=== PATIENT | male | born 1990 | race Caucasian/White ===

== ENCOUNTER 2018-09-20 10:54 | Inpatient (IN) | payer BC ==
[~2018-09-20] VITALS: Ht 170.2 cm; Wt 90.0 kg
[2018-09-20 17:33] VITALS: PULSE 89
[2018-09-20 17:52] VITALS: BP 162/108; PULSE 92; RESP 18
[2018-09-20 18:29] VITALS: Ht 170.2 cm; Wt 90.0 kg
[2018-09-20] MEDS ORDERED: LORAZEPAM 2 MG INJ IV PRN (19:00)
[2018-09-20] MEDS ORDERED: morphine 2 MG INJ IV PRN (19:00)
[2018-09-20] MEDS ORDERED: ACETAMINOPHEN 325 MG TAB PO PRN (19:00)
[2018-09-20] MEDS ORDERED: NACL 0.9% 3 ML SYG IV SCH (19:00)
[2018-09-20] MEDS ORDERED: ZOLPIDEM 5 MG TAB PO PRN (19:00)
[2018-09-20] MEDS ORDERED: ONDANSETRON 4 MG INJ IV PRN (19:00)
[2018-09-20] MEDS ORDERED: DOCUSATE SODIUM 100 MG CAP PO PRN (19:00)
--- NOTE | 2018-09-20 19:28 | HP ---
Date/Time of Note Date/Time of Note DATE: 09/20/18 TIME: 19:23 Assessment/Plan VTE Prophylaxis SCD applied (from Ns): Yes Pharmacological prophylaxis: NA/contraindicated Pharm contraindication: low risk/ambulating Assessment/Plan Hospital Course 1. Seizure Patient had a seizure last night, patient has no prior history of seizures Labs, U tox and CT head at outside hospital were normal Neurology consultation obtained Etiology may be related to a viral syndrome and/or lack of sleep 2. Decreased p.o. intake with nausea vomiting likely secondary to viral syndrome Monitor IV fluids Prophylaxis: SCDs HPI/ROS Admit Date/Time Admit Date/Time Sep 20, 2018 at 17:07 Hx of Present Illness Patient is a 28-year-old male with no significant medical history, patient works night shifts at [email or web address] and was on his way to work when he suffered a witnessed seizure at 3 AM. Patient has no prior history of seizures, patient denies any substance abuse or alcohol abuse. Patient was sent to [facility] where labs, U tox and CT head were within normal limits. Patient is currently alert and oriented, patient does report decreased p.o. intake and nausea vomiting for the past 2 days. Patient also reports not sleeping as well recently as he typically does. Patient denies any cough, fevers, chills or sick contacts. ROS Constitutional: no complaints, improved Eyes: no complaints ENT: no complaints Respiratory: no complaints Cardiovascular: no complaints Gastrointestinal: decreased appetite, nausea Genitourinary: no complaints Musculoskeletal: no complaints Skin: no complaints Neurologic: seizure Endocrine: no complaints Lymphatic: no complaints Psychological: no complaints, nl mood/affect Immunologic: no complaints PMH/Family/Social Past Medical History Medical History: no pertinent history Medications Current Medications IV Flush (NS 3 ml) 3 ml PER PROTOCOL IV ; Start 09/20/18 at 19:00 Ondansetron HCl (Zofran Inj) 4 mg Q6H PRN IV NAUSEA/VOMITING; Start 09/20/18 at 19:00 Acetaminophen (Tylenol Tab) 650 mg Q6H PRN PO .PAIN 1-3 OR TEMP; Start 09/20/18 at 19:00 Acetaminophen/ Hydrocodone Bitart ([place] (5/325)) 1 tab Q6H PRN PO .MOD PAIN 4- 6; Start 09/20/18 at 19:00 Morphine Sulfate (morphine) 2 mg Q4H PRN IV .SEVERE PAIN 7-10; Start 09/20/18 at 19:00 Docusate Sodium (Colace) 100 mg Q12H PRN PO .CONSTIPATION; Start 09/20/18 at 19:00 Zolpidem Tartrate (Ambien) 5 mg QHS PRN PO .INSOMNIA; Start 09/20/18 at 19:00 Levetiracetam 100 ml @ 400 mls/hr Q12 IVPB ; Start 09/20/18 at 21:00 Lorazepam (Ativan) 1 mg Q2H PRN IV SEIZURES; Start 09/20/18 at 19:00 Coded Allergies: Penicillins (Verified Allergy, Unknown, 09/20/18) Past Surgical History Hernia surgery Family History Significant Family History: other (Seizures and lupus in the mother) Social History Alcohol Use: rarely Smoking Status: Never smoker Drug Use: none Exam/Review of Systems Vital Signs Vitals Vital Signs Date Temp Pulse Resp B/P (MAP) Pulse Ox O2 O2 Flow FiO2 Time Delivery Rate 09/20/18 98.0 92 18 162/108 96 17:52 (126) Exam Constitutional: alert, oriented Respiratory: clear to auscultation Cardiovascular: regular rate and rhythm Gastrointestinal: soft; No distended Musculoskeletal: nl extremities to inspection SELENA CAREY Sep 20, 2018 19:28
[2018-09-20 19:55] VITALS: BP 165/112; PULSE 87; RESP 18
--- NOTE | 2018-09-20 19:55 | NUR ---
Pt refusing bed alarm during bedside shift report with ROBBIN Felix.
[2018-09-20 20:00] VITALS: PULSE 74
[2018-09-20] MEDS: LEVETIRACETAM 1000 MG (PMX) 100 ML IVPB SCH (21:01)
[2018-09-20] MEDS: SOD CHLORIDE 0.9% 1,000 ML IV SCH (21:01)
[2018-09-20] MEDS: HYDROCODONE/APAP (5/325) TAB PO PRN (21:02)
[2018-09-21] VITALS (14 sets, daily range): BP systolic 158–176; BP diastolic 92–106; PULSE 78–100; RESP 18–20
[2018-09-21] MEDS: SOD CHLORIDE 0.9% 1,000 ML IV SCH (05:48)
--- NOTE | 2018-09-21 07:34 | NUR ---
EOSS: Pt in room resting comfortably. Pt has no complaints at this time. Pt has no s/s of distress. Bedside shift report given to ROBBIN Rios.
[2018-09-21] MEDS: LEVETIRACETAM 1000 MG (PMX) 100 ML IVPB SCH (08:37)
--- NOTE | 2018-09-21 15:00 | CONS ---
Assessment/Plan Assessment/Plan Hospital Course A: 28 yo M with no significant PMH who presents following his first reported seizure of life. There are no clear provoking factors. CTH from [place] is reportedly unremarkable. P: MRI c/ c/o contrast for further characterization EEG to evaluate for epileptiform activity Load with Keppra 1g now and start maintenance 500 BID Ativan IV PRN seizure > 5 min or for cluster Cont medical management per primary Will follow clinically Consultation Date/Type/Reason Admit Date/Time Sep 20, 2018 at 17:07 Type of Consult Neurology Reason for Consultation seizures Requesting Provider: SELENA CAREY Date/Time of Note DATE: 09/21/18 TIME: 15:00 Hx of Present Illness 28 yo M with no reported PMH who presents for evaluation of 2 witnessed seizures. History was obtained from pt and chart review. The pt endorses BLE soreness/weakness but denies lethargy, confusion, recent illness, previous seizure episodes. It is elsewhere noted: Hx of Present Illness Patient is a 28-year-old male with no significant medical history, patient works night shifts at [employer] and was on his way to work when he suffered a witnessed seizure at 3 AM. Patient has no prior history of seizures, patient denies any substance abuse or alcohol abuse. Patient was sent to [facility] where labs, U tox and CT head were within normal limits. Patient is currently alert and oriented, patient does report decreased p.o. intake and nausea vomiting for the past 2 days. Patient also reports not sleeping as well recently as he typically does. Patient denies any cough, fevers, chills or sick contacts. negative unless noted otherwise in HPI Exam/Review of Systems Exam Vitals Vital Signs Date Temp Pulse Resp B/P (MAP) Pulse Ox O2 O2 Flow FiO2 Time Delivery Rate 09/21/18 87 12:01 09/21/18 98.4 19 176/106 97 11:50 (129) Intake and Output 09/20/18 09/20/18 09/21/18 1515:00 23:00 07:00 IntakeIntake Total 300 ml BalanceBalance 300 ml Exam PE: Gen Appearance: No Apparent Distress HEENT: Normocephalic Cardiovascular: Regular rate Lungs: Clear bilaterally Abdomen: Soft Extremities: Dry NE: The patient was alert and oriented. Language was normal. Fund of knowledge was normal. Pupils were equal and reactive to light. There was no afferent pupillary defect. Visual russ were normal. Funduscopic examination was limited. Extra-ocular movements were full. Ptosis was absent. There was no nystagmus. Facial sensation was normal. Face was symmetric with normal strength. Hearing was intact. Palate movements were normal. Neck strength was normal. There was normal tongue bulk and speed of movement. Tone was normal. Muscle bulk was normal. I did not see fasciculations. Arms were strong; legs were were mildly weak. Vibration sensation was normal. Temperature and pinprick sensation was normal. Rapid alternating movements were normal. There was no dysmetria. There was no intention tremor. Gait was deferred due to bedrest. Arm and leg reflexes were 2+ and symmetric. Ghotra's sign was absent. Plantar responses were flexor. Results Result Diagram: 09/21/18 0456 09/21/18 0456 Results 24hrs Laboratory Tests Test 09/21/18 04:56 White Blood Count 8.5 Red Blood Count 4.65 L Hemoglobin 15.5 Hematocrit 43.2 Mean Corpuscular Volume 92.9 Mean Corpuscular Hemoglobin 33.3 H Mean Corpuscular Hemoglobin Concent 35.9 Red Cell Distribution Width 11.7 Platelet Count 226 Mean Platelet Volume 9.5 Immature Granulocytes % 0.200 Neutrophils % 58.8 Lymphocytes % 27.2 Monocytes % 9.7 Eosinophils % 3.7 Basophils % 0.4 Nucleated Red Blood Cells % 0.0 Immature Granulocytes # 0.020 Neutrophils # 5.0 Lymphocytes # 2.3 Monocytes # 0.8 Eosinophils # 0.3 Basophils # 0.0 Nucleated Red Blood Cells # 0.0 Sodium Level 142 Potassium Level 3.7 Chloride Level 110 Carbon Dioxide Level 28 Anion Gap 4 L Blood Urea Nitrogen 10 Creatinine 1.07 Est Glomerular Filtrat Rate mL/min > 60 Glucose Level 88 Hemoglobin A1c 5.0 Calcium Level 9.5 Phosphorus Level 3.2 Magnesium Level 2.1 Total Bilirubin 1.0 Direct Bilirubin 0.00 Indirect Bilirubin 1.0 Aspartate Amino Transf (AST/SGOT) 27 Alanine Aminotransferase (ALT/SGPT) 24 Alkaline Phosphatase 60 Total Protein 7.4 Albumin 4.2 Globulin 3.20 Albumin/Globulin Ratio 1.31 Free Thyroxine Index 3.02 Thyroxine (T4) 8.8 Triiodothyronine (T3) Uptake 34.3 Medications Medication Current Medications IV Flush (NS 3 ml) 3 ml PER PROTOCOL IV ; Start 09/20/18 at 19:00 Ondansetron HCl (Zofran Inj) 4 mg Q6H PRN IV NAUSEA/VOMITING; Start 09/20/18 at 19:00 Acetaminophen (Tylenol Tab) 650 mg Q6H PRN PO .PAIN 1-3 OR TEMP; Start 09/20/18 at 19:00 Acetaminophen/ Hydrocodone Bitart ([place] (5/325)) 1 tab Q6H PRN PO .MOD PAIN 4- 6 Last administered on 09/20/18at 21:02; Admin Dose 1 TAB; Start 09/20/18 at 19:00 Morphine Sulfate (morphine) 2 mg Q4H PRN IV .SEVERE PAIN 7-10; Start 09/20/18 at 19:00 Docusate Sodium (Colace) 100 mg Q12H PRN PO .CONSTIPATION; Start 09/20/18 at 19:00 Zolpidem Tartrate (Ambien) 5 mg QHS PRN PO .INSOMNIA; Start 09/20/18 at 19:00 Levetiracetam 100 ml @ 400 mls/hr Q12 IVPB Last administered on 09/21/18at 08:37; Admin Dose 400 MLS/HR; Start 09/20/18 at 21:00 Lorazepam (Ativan) 1 mg Q2H PRN IV SEIZURES; Start 09/20/18 at 19:00 Amlodipine Besylate (Norvasc) 5 mg DAILY PO ; Start 09/21/18 at 14:00 Past Medical History reviewed Medical History: no pertinent history Medications Current Medications IV Flush (NS 3 ml) 3 ml PER PROTOCOL IV ; Start 09/20/18 at 19:00 Ondansetron HCl (Zofran Inj) 4 mg Q6H PRN IV NAUSEA/VOMITING; Start 09/20/18 at 19:00 Acetaminophen (Tylenol Tab) 650 mg Q6H PRN PO .PAIN 1-3 OR TEMP; Start 09/20/18 at 19:00 Acetaminophen/ Hydrocodone Bitart ([place] (5/325)) 1 tab Q6H PRN PO .MOD PAIN 4- 6 Last administered on 09/20/18at 21:02; Admin Dose 1 TAB; Start 09/20/18 at 19:00 Morphine Sulfate (morphine) 2 mg Q4H PRN IV .SEVERE PAIN 7-10; Start 09/20/18 at 19:00 Docusate Sodium (Colace) 100 mg Q12H PRN PO .CONSTIPATION; Start 09/20/18 at 19:00 Zolpidem Tartrate (Ambien) 5 mg QHS PRN PO .INSOMNIA; Start 09/20/18 at 19:00 Levetiracetam 100 ml @ 400 mls/hr Q12 IVPB Last administered on 09/21/18at 08:37; Admin Dose 400 MLS/HR; Start 09/20/18 at 21:00 Lorazepam (Ativan) 1 mg Q2H PRN IV SEIZURES; Start 09/20/18 at 19:00 Amlodipine Besylate (Norvasc) 5 mg DAILY PO ; Start 09/21/18 at 14:00 Allergies: Coded Allergies: Penicillins (Verified Allergy, Unknown, 09/20/18) Past Surgical History reviewed Family History Significant Family History: seizures (mother) Social History reviewed Alcohol Use: rarely Smoking Status: Never smoker Drug Use: none IGNNA PALAFOX NP Sep 21, 2018 15:00
[2018-09-21] MEDS: AMLODIPINE 5 MG TAB PO SCH (15:24)
--- NOTE | 2018-09-21 16:10 | PN ---
Date/Time of Note Date/Time of Note DATE: 09/21/18 TIME: 16:08 Assessment/Plan VTE Prophylaxis Risk score (from Nsg)>0 risk: 1 SCD applied (from Nsg): Yes Pharmacological prophylaxis: NA/contraindicated Pharm contraindication: low risk/ambulating Lines/Catheters IV Catheter Type (from Nrsg): Peripheral IV Urinary Cath still in place: No Assessment/Plan Hospital Course 1. Seizure Patient had a one-time seizure, patient has no prior history of seizures Continue Keppra, Ativan as needed Labs, U tox and CT head at outside hospital were normal Neurology consultation appreciated, follow-up on MRI and EEG Etiology may be related to a viral syndrome and/or lack of sleep 2. Decreased p.o. intake with nausea vomiting likely secondary to viral syndrome Monitor Status post IV fluids 3. Hypertension Start Norvasc Labetalol as needed 4. Likely LEONA Weight loss advised Outpatient sleep study Prophylaxis: SCDs Result Diagram: 09/21/18 0456 09/21/18 0456 Results 24hrs Laboratory Tests Test 09/21/18 04:56 White Blood Count 8.5 Red Blood Count 4.65 L Hemoglobin 15.5 Hematocrit 43.2 Mean Corpuscular Volume 92.9 Mean Corpuscular Hemoglobin 33.3 H Mean Corpuscular Hemoglobin Concent 35.9 Red Cell Distribution Width 11.7 Platelet Count 226 Mean Platelet Volume 9.5 Immature Granulocytes % 0.200 Neutrophils % 58.8 Lymphocytes % 27.2 Monocytes % 9.7 Eosinophils % 3.7 Basophils % 0.4 Nucleated Red Blood Cells % 0.0 Immature Granulocytes # 0.020 Neutrophils # 5.0 Lymphocytes # 2.3 Monocytes # 0.8 Eosinophils # 0.3 Basophils # 0.0 Nucleated Red Blood Cells # 0.0 Sodium Level 142 Potassium Level 3.7 Chloride Level 110 Carbon Dioxide Level 28 Anion Gap 4 L Blood Urea Nitrogen 10 Creatinine 1.07 Est Glomerular Filtrat Rate mL/min > 60 Glucose Level 88 Hemoglobin A1c 5.0 Calcium Level 9.5 Phosphorus Level 3.2 Magnesium Level 2.1 Total Bilirubin 1.0 Direct Bilirubin 0.00 Indirect Bilirubin 1.0 Aspartate Amino Transf (AST/SGOT) 27 Alanine Aminotransferase (ALT/SGPT) 24 Alkaline Phosphatase 60 Total Protein 7.4 Albumin 4.2 Globulin 3.20 Albumin/Globulin Ratio 1.31 Free Thyroxine Index 3.02 Thyroxine (T4) 8.8 Triiodothyronine (T3) Uptake 34.3 Subjective 24 Hr Interval Summary Constitutional: no complaints Exam/Review of Systems Exam Vitals Vital Signs Date Temp Pulse Resp B/P (MAP) Pulse Ox O2 O2 Flow FiO2 Time Delivery Rate 09/21/18 98.5 89 20 170/103 97 15:42 (125) Intake and Output 09/20/18 09/20/18 09/21/18 1515:00 23:00 07:00 IntakeIntake Total 300 ml BalanceBalance 300 ml Constitutional: alert, oriented Respiratory: clear to auscultation Cardiovascular: regular rate and rhythm Gastrointestinal: soft; No distended Musculoskeletal: nl extremities to inspection Results Results 24hrs Laboratory Tests Test 09/21/18 04:56 White Blood Count 8.5 Red Blood Count 4.65 L Hemoglobin 15.5 Hematocrit 43.2 Mean Corpuscular Volume 92.9 Mean Corpuscular Hemoglobin 33.3 H Mean Corpuscular Hemoglobin Concent 35.9 Red Cell Distribution Width 11.7 Platelet Count 226 Mean Platelet Volume 9.5 Immature Granulocytes % 0.200 Neutrophils % 58.8 Lymphocytes % 27.2 Monocytes % 9.7 Eosinophils % 3.7 Basophils % 0.4 Nucleated Red Blood Cells % 0.0 Immature Granulocytes # 0.020 Neutrophils # 5.0 Lymphocytes # 2.3 Monocytes # 0.8 Eosinophils # 0.3 Basophils # 0.0 Nucleated Red Blood Cells # 0.0 Sodium Level 142 Potassium Level 3.7 Chloride Level 110 Carbon Dioxide Level 28 Anion Gap 4 L Blood Urea Nitrogen 10 Creatinine 1.07 Est Glomerular Filtrat Rate mL/min > 60 Glucose Level 88 Hemoglobin A1c 5.0 Calcium Level 9.5 Phosphorus Level 3.2 Magnesium Level 2.1 Total Bilirubin 1.0 Direct Bilirubin 0.00 Indirect Bilirubin 1.0 Aspartate Amino Transf (AST/SGOT) 27 Alanine Aminotransferase (ALT/SGPT) 24 Alkaline Phosphatase 60 Total Protein 7.4 Albumin 4.2 Globulin 3.20 Albumin/Globulin Ratio 1.31 Free Thyroxine Index 3.02 Thyroxine (T4) 8.8 Triiodothyronine (T3) Uptake 34.3 Medications Medication Current Medications IV Flush (NS 3 ml) 3 ml PER PROTOCOL IV ; Start 09/20/18 at 19:00 Ondansetron HCl (Zofran Inj) 4 mg Q6H PRN IV NAUSEA/VOMITING; Start 09/20/18 at 19:00 Acetaminophen (Tylenol Tab) 650 mg Q6H PRN PO .PAIN 1-3 OR TEMP; Start 09/20/18 at 19:00 Acetaminophen/ Hydrocodone Bitart ([place] (5/325)) 1 tab Q6H PRN PO .MOD PAIN 4- 6 Last administered on 09/20/18at 21:02; Admin Dose 1 TAB; Start 09/20/18 at 19:00 Morphine Sulfate (morphine) 2 mg Q4H PRN IV .SEVERE PAIN 7-10; Start 09/20/18 at 19:00 Docusate Sodium (Colace) 100 mg Q12H PRN PO .CONSTIPATION; Start 09/20/18 at 19:00 Zolpidem Tartrate (Ambien) 5 mg QHS PRN PO .INSOMNIA; Start 09/20/18 at 19:00 Lorazepam (Ativan) 1 mg Q2H PRN IV SEIZURES; Start 09/20/18 at 19:00 Amlodipine Besylate (Norvasc) 5 mg DAILY PO Last administered on 09/21/18at 15:24; Admin Dose 5 MG; Start 09/21/18 at 14:00 Levetiracetam 100 ml @ 400 mls/hr Q12 IVPB ; Start 09/21/18 at 21:00 SELENA CAREY Sep 21, 2018 16:10
[2018-09-21] MEDS ORDERED: LABETALOL HCL 20MG INJ IV PRN (16:30)
[2018-09-21] MEDS ORDERED: LEVETIRACETAM 1000 MG (PMX) 100 ML IVPB ONE (16:30)
--- NOTE | 2018-09-21 18:11 | NUR ---
EOSS Patient stable, no seizures, receiving IV keppra, seizure precautions in place, patient is refusing bed alarm, but does ambulate independently, right hand 18G IV accidentally discontinued by patient, left hand 22G IV inserted and is patent and saline locked, fluids discontinued, started on norvasc 5mg PO for hypertension with PRN 20mg labetolol Q4H as needed, tolerating diet well, no complaints of pain, pending MRI brain, will endorse care to inventory control coordinator.
[2018-09-21] MEDS: LEVETIRACETAM 500 MG (PMX) 100 ML IVPB SCH (21:25)
[2018-09-21] MEDS: HYDROCODONE/APAP (5/325) TAB PO PRN (21:26)
[2018-09-22] VITALS (8 sets, daily range): BP systolic 142–162; BP diastolic 94–105; PULSE 74–102; RESP 18–20
[2018-09-22] MEDS: LEVETIRACETAM 500 MG (PMX) 100 ML IVPB SCH (08:47)
[2018-09-22] MEDS: AMLODIPINE 5 MG TAB PO SCH (08:47)
[2018-09-22] MEDS ORDERED: AMLODIPINE 5 MG TAB PO ONE (09:30)
[2018-09-22] MEDS ORDERED: LEVE-5 PO (10:37)
[2018-09-22] MEDS ORDERED: AMLO-145 PO (10:37)
--- NOTE | 2018-09-22 10:38 | PDOCDIS ---
Discharge Instructions CONDITION [id number] Patient Condition: [id number] Good HOME CARE INSTRUCTIONS: [id number] Diet Instructions: [id number] Reduced Calorie ACTIVITY: [id number] Activity Restrictions: [id number] Slowly Increase Activity FOLLOW UP/APPOINTMENTS Follow-up Plan FOLLOW UP WITH YOUR PCP IN 1-2 WEEKS, FOLLOW UP WITH A NEUROLOGIST SELENA CAREY Sep 22, 2018 10:38
--- NOTE | 2018-09-22 11:04 | DS ---
Date/Time of Note Date/Time of Note DATE: 09/22/18 TIME: 11:00 Discharge Summary Admission/Discharge Info Admit Date/Time Sep 20, 2018 at 17:07 Discharge Date/Time September 22, 2018 Discharge Diagnosis 1. Seizure Patient had a one-time seizure, patient has no prior history of seizures Status post IV Keppra, DC with Keppra p.o. Labs, U tox and CT head at outside hospital were normal Neurology consultation appreciated, MRI brain is negative Etiology may be related to a viral syndrome and/or lack of sleep 2. Decreased p.o. intake with nausea vomiting likely secondary to viral syndrome-resolved Status post IV fluids 3. Hypertension Have started Norvasc during this hospitalization, DC with Norvasc 10 mg daily 4. Likely LEONA Weight loss advised Outpatient sleep study Patient Condition: Good Hospital Course Patient is a 28-year-old male with no significant medical history, patient works night shifts at [employer] and was on his way to work when he suffered a witnessed seizure at 3 AM. Patient has no prior history of seizures, patient denies any substance abuse or alcohol abuse. Patient was sent to [facility] where labs, U tox and CT head were within normal limits. Patient was not postictal upon arrival, patient did report decreased p.o. intake and nausea vomiting for several days and also reported not sleeping well as well as symptoms of obstruct kenny sleep apnea. Patient was seen by neurology, MRI was done and was negative, etiology of seizures may have been contributed by lack of sleep and possible viral syndrome. Patient appetite did improve and patient had no further seizures during his hospitalization. The patient's blood pressure was noted to be consistently elevated and patient was started on Norvasc 5 mg daily and was increased to 10 mg daily which ultimately stabilized the blood pressure. Patient was stable for DC, on the day of discharge patient's vitals, labs and physical exam are stable. Home Meds Active Scripts Levetiracetam* (Keppra*) 500 Mg Tablet, 500 MG PO BID, #60 TAB 1 Refill Prov:SELENA CAREY 09/22/18 Amlodipine Besylate* (Amlodipine Besylate*) 5 Mg Tablet, 10 MG PO DAILY, #60 TAB 1 Refill Prov:SELENA CAREY 09/22/18 Follow-up Plan FOLLOW UP WITH YOUR PCP IN 1-2 WEEKS, FOLLOW UP WITH A NEUROLOGIST Primary Care Provider Not On Staff Doctor SELENA CAREY Sep 22, 2018 11:04
--- NOTE | 2018-09-22 13:53 | CONS ---
Assessment/Plan Assessment/Plan Hospital Course 28 yo M s/ significant PMHx, presents following his first seizures of life...for which neurology is consulted. There is no obvious provoking factor identified.. New onset epilepsy is, thus, a possibility.. MRI brain is normal.. P: Await EEG Keppra 500mg bid for 3 months, with taper to off thereafter if the above is negative..(but to be continued indefinitely if EEG is abnl) Ativan iv prn prolonged seizure of cluster Other management per primary Consultation Date/Type/Reason Admit Date/Time Sep 20, 2018 at 17:07 Type of Consult Neurology Requesting Provider: SELENA CAREY Date/Time of Note DATE: 09/22/18 TIME: 13:49 24 HR Interval Summary Free Text/Dictation Continue acute care s/p MRI brain Awaits EEG Exam Vital Signs Vitals Vital Signs Date Temp Pulse Resp B/P (MAP) Pulse Ox O2 O2 Flow FiO2 Time Delivery Rate 09/22/18 94 12:25 09/22/18 98.6 19 162/98 98 11:32 (119) Intake and Output 09/21/18 09/21/18 09/22/18 1515:00 23:00 07:00 IntakeIntake Total 100 ml 1100 ml 1000 ml OutputOutput Total 3 ml BalanceBalance 100 ml 1100 ml 997 ml Exam PE: Gen Appearance: No Apparent Distress HEENT: Normocephalic Cardiovascular: Regular rate Lungs: Clear bilaterally Abdomen: Soft Extremities: Dry NE: The patient was alert and oriented. Language was normal. Fund of knowledge was normal. Pupils were equal and reactive to light. There was no afferent pupillary defect. Visual russ were normal. Funduscopic examination was limited. Extra-ocular movements were full. Ptosis was absent. There was no nystagmus. Facial sensation was normal. Face was symmetric with normal strength. Hearing was intact. Palate movements were normal. Neck strength was normal. There was normal tongue bulk and speed of movement. Tone was normal. Muscle bulk was normal. I did not see fasciculations. Arms and legs were strong. Vibration sensation was normal. Temperature and pinprick sensation was normal. Rapid alternating movements were normal. There was no dysmetria. There was no intention tremor. Gait was deferred due to bedrest. Arm and leg reflexes were symmetric. Ghotra's sign was absent. Plantar responses were flexor. MYRA TELLEZ Sep 22, 2018 13:53
--- NOTE | 2018-09-22 16:21 | NUR ---
Patient cleared for discharge home, vitals stable, denies pain, A/Ox4, PERRLA, no seizures, ambulatory and independent, IV discontinued, radiation monitor discontinued and returned to nursing station, EEG completed, discharge packet reviewed and signed, prescriptions given to patient, belongings returned to patient, instructed on follow-up, provided education on high blood pressure, patient walked off unit to go meet ride downstairs.
--- NOTE | 2018-09-23 05:52 | EEG ---
EEG NOTE Report Details DATE OF TEST: 09/22/18 HISTORY: The patient is a 28-year-old M who presents following his first seizures. This EEG is requested to evaluate for an epileptic disorder. SEDATION: None. CONDITIONS OF RECORDING: This EEG was recorded digitally on the [employer] machine, using the International 10-20 System of electrodes plus anterior temporals and [place]. STATES SAMPLED: Wakefulness and drowsiness. FINDINGS: During wakefulness, there is an 11 Hz posterior dominant rhythm, which attenuates normally with eye opening. There is a normal [id number] frequency-amplitude gradient. The remainder of the awake background is normal. Photic stimulation does not elicit any definite driving responses or ep ileptiform discharges. Hyperventilation, performed with good effort, produces a negligible change in the background. The patient became drowsy but did not pass into sleep. No asymmetries, focal abnormalities or epileptiform discharges were seen. Incidentally, the single-channel library monitor did not reveal any obvious cardiac arrhythmia. IMPRESSION: Normal electroencephalogram during wakefulness and drowsiness. MYRA TELLEZ Sep 23, 2018 05:52
[2018-09-23] MEDS ORDERED: AMLODIPINE 5 MG TAB PO SCH (09:00)
--- NOTE | 2018-09-27 13:27 | NUR ---
JOSHUA notes: CM faxed clinicals to patients health insurance [facility] .
== END 2018-09-22 16:05 | disposition home or self-care (01) | DRG 101 ==
LOC: 6WM 17:07
PROVIDERS: ADMIT Internal Medicine; ATTEND Internal Medicine
DX: R56.9 Unspecified convulsions (principal); I10 Essential (primary) hypertension; G47.33 Obstructive sleep apnea (adult) (pediatric)
CPT/HCPCS: 70553; 80053; 83036; 83735; 84100; 84436; 84479; 85025; 95819; J1953; J7030